=== PATIENT | female | born 1980 | race Caucasian/White ===

== ENCOUNTER 2024-11-30 02:09 | Inpatient (IN) | payer OTHER, SELFPAY ==
[2024-11-29 16:58] VITALS: BP 115/79
[2024-11-29 17:42] LABS: HCG, Serum Qualitative Screen Negative; Hematocrit 32.4 % (37.0-47.0); Hemoglobin 10.1 g/dL (12.0-16.0); Mean Corp Hgb Conc. 31.2 g/dL (33.0-37.0); Mean Corpuscular Volume 74.5 fL (81.0-99.0); Nucleated Red Blood Cells % 0 %; Platelet Count 354 10^3/uL (130-400); Red Cell Dist. Width 13.2 % (11.5-14.5)
[2024-11-29 17:48] LABS: ALT (SGPT) 11 U/L (0-35); AST (SGOT) 14 U/L (14-36); Albumin 3.6 g/dl (3.5-5.0); Alkaline Phosphatase 81 U/L (38-126); Blood Urea Nitrogen 6 mg/dl (7-17); Calcium 8.8 mg/dl (8.4-10.2); Carbon Dioxide 29 mmol/L (22-30); Chloride 98 mmol/L (98-107); Glucose 102 mg/dl (70-99); Lipase 39 U/L (23-300); Potassium 3.1 mmol/L (3.5-5.1); Sodium 134 mmol/L (135-145); Total Protein 6.5 g/dl (6.3-8.2); eGFR > 60.00
[2024-11-29 22:09] VITALS: BP 123/84
[2024-11-29 23:53] VITALS: BMI 28.2
--- NOTE | 2024-11-30 00:11 | HPS.HSE ---
Family Physician
-
Family Physician: Benjamin Garcia MD
Chief Complaint
-
Abdominal pain
History of Present Illness
This is a 41-year-old female with past medical history significant for ulcerative colitis and depression who presents to the emergency department with ongoing abdominal pain that started about 5 days ago.
Patient reports that she had a 'stomach flu' starting about Thursday last week. Initially she just had crampy abdominal pain and intolerance to p.o. However at around Thursday she started having fevers chills and severe persistent abdominal pain and
that she reports sharp and squeezing sensation. She was unable to tolerate p.o. due to worsening pain associated with p.o. intake. She denied having any diarrhea at that time. She was seen at [facility] as she was traveling at that time.
She had a CT scan that showed moderately active ulcerative colitis with rectal wall thickening and a right-sided perirectal/perianal 1.2 cm fluid collection consistent with an abscess. She was placed on antibiotics. Patient reported that despite
the antibiotics she still continued to have abdominal pain and now that it is more diffuse. She has some tenesmus. She still unable to tolerate p.o. and stated that she still had chills and rigors despite antibiotics. She reported that she did
have mucus containing stools and or unusual vaginal discharge today.
She last had a colonoscopy a year ago which showed signs of ulcerative colitis but no active disease. She has been maintained on mesalamine since then. She has never been on any other disease modifying medications.
In the emergency department she was afebrile with a temp of 99.8, blood pressure was 125/80 with a pulse of 86 and she satting 100% on room air.
White count was 15, hemoglobin 10. Count 354. She has a potassium of 2.1 otherwise electrolytes BUN/creatinine were normal. Lactic acid was normal. CT of the abdomen pelvis is pending.
Medical History
Past Medical History
Past Medical History: Reports Other (Ulcerative colitis)
Past Surgical History: Reports (X 2) and Tonsilectomy
Social History
Tobacco: Smoker
Alcohol: Occasional
Drug: None
Personal:
Living: With Family
Family History
Family History: Not pertinent
Allergies / Home Medications
Allergies reflects when Allergies were last updated in [employer].
Home Medications with original date entered in [employer]
Allergy/Medication List:
Allergies
Allergy/AdvReac Type Severity Reaction Status Date / Time
No Known Allergies Allergy Unverified 11/29/24 23:53
Home Medications
mesalamine 1.2 gram tablet,delayed release 2.4 g PO DAILY 11/30/24
paroxetine HCl 10 mg tablet 10 mg PO DAILY 11/30/24
Review of Systems
-
Constitutional: Reports No Symptoms
EENT: Reports No Symptoms
Respiratory: Reports No Symptoms
Cardiac: Reports No Symptoms
Abdomen/GI: Reports Abdominal Pain and Nausea
: Reports No Symptoms
Musculoskeletal: Reports No Symptoms
Skin: Reports No Symptoms
Neurological: Reports No Symptoms
Endocrine: Reports No Symptoms
Hematologic/Lymphatic: Reports No Symptoms
Psych: Reports No Symptoms
Physical Exam
Vital Signs
Vital Signs
Temp Pulse Resp BP Pulse Ox
99.8 F 86 16 123/84 100
11/29/24 16:58 11/29/24 16:58 11/29/24 22:11 11/29/24 22:09 11/29/24 22:10
Physical Exam
General: Well Developed, Well Nourished and No Apparent Distress
HEENT: NormoCephalic, Moist mucous membranes and Atraumatic
Respiratory: Clear
Cardiac: S1/S2 and Regular Rhythm; No Murmur or Rub
GI: Soft, Non Distended, Normal Bowel Sounds and Tender; No Organomegaly
Rectal: Deferred by Provider
Musculoskeletal: No Clubbing, No Cyanosis and No Edema
Skin: No Rash
Neuro: AO x 3 and Nonfocal/grossly intact
Psych: Calm
Laboratory Results
-
11/29/24 17:20
11/29/24 17:20
Laboratory Results
Lactic Acid 0.7 mmol/L (0.7-2.0) 11/29/24 17:20
Total Bilirubin 0.3 mg/dl (0.2-1.3) 11/29/24 17:20
AST 14 U/L (14-36) 11/29/24 17:20
ALT 11 U/L (0-35) 11/29/24 17:20
Alkaline Phosphatase 81 U/L (38-126) 11/29/24 17:20
Lipase 39 U/L (23-300) 11/29/24 17:20
Data Reviewed
-
Lab Data: Labs Reviewed by me
Old Records: Reviewed
Impression/Plan
-
IMPRESSION:
41-year-old female with history of ulcerative colitis presented to the emergency department with several days of intractable abdominal pain with nausea and 1 episode of nonbilious and nonbloody emesis. She was diagnosed with moderate active
ulcerative colitis few days ago at [facility] with associated right-sided perirectal abscess and was started on oral antibiotics. Despite the oral antibiotics patient is going to have severe abdominal pain feverish and chills. Here she
has leukocytosis to 15.
PLAN:
Perirectal Abscess - Likely secondary to active ulcerative colitis. Failure of oral abx. No fistula on reported CT - scan from [facility].
- admit to med/surg
- CT a/p
- NPO for now
- IV zosyn,
- Surgery consultation, OR in AM.
UC - follows at [facility], on mesalamine, no known recent flare but appears to be having a moderate flare based on CT scan from [facility]. Mucus containing stools today.
- checking esr, fecal calprotectin
- IV abx as above
- holding steroids for now
- continue mesalamine
- GI consult
DVT PPX - Lovenox Sq
Code status - Full code
[2024-11-30] MEDS: ZOSYN 100 IV (00:31)
[2024-11-30] MEDS: DILAUDID 1 MG IV (00:31)
[2024-11-30] MEDS: ZOFRAN 4 MG IV (00:32)
[2024-11-30] MEDS: KCL 40 MEQ PO (01:23)
[2024-11-30 01:28] VITALS: BP 123/75
--- NOTE | 2024-11-30 01:48 | ED.GENMED ---
History of Present Illness
General
Chief Complaint: Abdominal Symptoms
Source: patient and spouse
Time Seen by Provider: 11/29/24 22:50
Nursing documentation reviewed up to this point in time: agreed with
History of Present Illness
History of Present Illness:
Note:
CHIEF COMPLAINT(S)
Anal abscess and severe abdominal pain.
HISTORY OF PRESENT ILLNESS
The patient is a 43-year-old female with a history of ulcerative colitis, presenting with significant abdominal pain and a diagnosed anal abscess. The abscess was identified while the patient was on vacation at [facility], where she was given oral
antibiotics and oxycodone for pain management. The pain began at the beginning of last week, with notable worsening by Thursday. She describes the pain as 'my whole belly feels like its going up in flames' and reports being unable to eat due to this
discomfort.
The patient perceives a possible flare-up of ulcerative colitis, mentioning 'Im in flames usually on my left side' and thinks that the entire colon might be involved as she hasnt experienced such pain before. Currently, shes avoiding steroids due to
the anal abscess. The patient also experienced a fever, reaching up to 102�F last night, but describes it mostly as 'low grade.'
PAST MEDICAL AND SURGICAL HISTORY
Diagnosed with ulcerative colitis.
SOCIAL DETERMINANTS AFFECTING HEALTH
The patient admits to consuming alcohol in excess during the weekend and possible recreational drug use.
REVIEW OF SYSTEMS
- Gastrointestinal: Severe abdominal pain, described as burning.
- Systemic: Fever reached up to 102�F.
PHYSICAL EXAM
General: Alert, no acute distress.
Skin: Warm, dry.
Head: Normocephalic, atraumatic.
Neck: Supple, trachea midline.
Eyes, Ears, Nose, Mouth, and Throat: Oral mucosa moist.
Cardiovascular: Normal peripheral perfusion, no edema.
Respiratory: Respirations are non-labored.
Gastrointestinal: Abdomen nondistended.
Back: Normal range of motion, normal alignment.
Musculoskeletal: Normal range of motion, normal strength.
Neurological: Alert and oriented to person, place, time, and situation. No focal neurological deficit observed.
Psychiatric: Cooperative, appropriate mood & affect.
PROBLEM LIST
Acute:
- Anal abscess
- Severe abdominal pain attributed to possible ulcerative colitis flare
Chronic:
- Ulcerative colitis
PLAN
- Admission to hospital for further evaluation and management.
- Consider stronger analgesics for pain management.
- Consultation with colorectal and gastroenterology specialists.
- Discussion regarding possible need for imaging such as a new CT scan or MRI, contingent on specialist recommendations.
DIFFERENTIAL DIAGNOSIS
The Differential Diagnosis includes, in no particular order and is not limited to:
1. Ulcerative colitis flare.
2. Complicated anal abscess.
3. Gastroenteritis.
4. Diverticulitis.
5. Crohns disease.
6. Colonic volvulus.
7. Appendicitis.
8. Gastrointestinal perforation.
9. Pelvic inflammatory disease.
10. Ischemic colitis.
Disposition:
SUMMARY OF ENCOUNTER
The patient, a 43-year-old female, presented with an anal abscess and was seen in the emergency department for admission to the hospital. Due to the seriousness of the abscess, which required surgical intervention, colorectal surgery was informed.
Dr. Finn was set to take the patient to the operating room the same day. In the emergency department, the patient was kept NPO (nothing by mouth) and was resting comfortably with pain management.
DISPOSITION
Admit
MANAGEMENT OF THE PATIENTS CARE WAS DISCUSSED WITH
Colorectal surgery, Dr. Finn
PLAN
The patient will be admitted to the hospitalist service, and colorectal surgery will proceed with surgical intervention for the anal abscess.
DIAGNOSIS
Anal abscess (ICD-10: K61.2)
Review of Systems
Review of Systems
Allergies reviewed?: Yes
All Other Systems: ROS reviewed and negative except as documented in HPI and ROS
Constitutional: Reports fever, fatigue and chills
EENT: Reports no symptoms
Respiratory: Reports no symptoms
Cardiac: Reports no symptoms
ABD/GI: Reports abdominal pain
: Reports no symptoms
Musculoskeletal: Reports no symptoms
Skin: Reports no symptoms
Neurological: Reports no symptoms
Endocrine: Reports no symptoms
Hematologic/Lymphatic: Reports no symptoms
Psychiatric: Reports no symptoms
Phy Exam
Physical Exam
Physical Exam:
.
Sepsis
Sepsis Screening
Sepsis Assessment: Sepsis
Sepsis Screen
Sepsis Screen: Sepsis
Date: 11/30/24
Time: 01:53
Course
Orders/Labs/Results
Orders:
Orders
11/29/24 17:08
Test Result ONCE
11/29/24 17:20
Complete Blood Count/With Diff Urgent
Comprehensive Metabolic Panel Urgent
HCG, Serum Qualitative Screen Urgent
Lactic Acid Urgent
Lipase Urgent
11/29/24 23:19
HYDROmorphone [Dilaudid] 1 mg IV NOW STA
11/29/24 23:23
Iohexol [Omnipaque] See Protocol PO NOW STA
Piperacillin/Tazo 4.5 Gram [Zosyn] 4.5 gram in 100 ml IV NOW
11/29/24 23:25
Ondansetron Injectable [Zofran] 4 mg IV NOW STA
11/30/24
CT Abd/pelvis W Iv Cont Urgent
Reason For Exam: known abcess
11/30/24 00:23
Admit/Transfer Patient As Directed
Co-Sign Provider:
Level of Care: Inpatient admission
Assign to:: Medical/Surgical
Physician / Group: Myla
Diagnosis: Perirectal abscess
Reason for Hospitalization: perirectal abscess
Expected length of stay greater than two midnights?: Yes
ELOS- Estimated Length of Stay in days: 2
I certify the patient meets the requirements for IP care: Yes
PRN Pain Medication Management As Directed
May give lesser potent ordered pain med per pt: Yes
preference::
Protocol:: Medication orders for pain may be administered in a
manner that supports deferring to patient preference
when the pt is:
- Requesting an ordered lesser potent pain medication.
Least to most potent pain medications are defined
as: acetaminophen < NSAID < tramadol < opioids
(morphine, oxycodone, hydromorphone).
- Requesting a lesser dose of the same medication IF
ORDERED.
- Requesting a less intrusive route of administration
if both routes are prescribed by the provider (PO <
IV).
11/30/24 00:25
Code Status As Directed
Resuscitation Status: Full Code
11/30/24 00:29
Potassium Chloride [KCl] 40 meq PO NOW STA
Abnormal Lab Results
11/29/24
17:20
WBC 15.0 H 10^3/uL
(4.8-10.8)
Hgb 10.1 L g/dL
(12.0-16.0)
Hct 32.4 L %
(37.0-47.0)
MCV 74.5 L fL
(81.0-99.0)
MCH 23.2 L pg
(27.0-31.0)
MCHC 31.2 L g/dL
(33.0-37.0)
Abs Immat Gran (auto) 0.1 H 10^3/uL
(0-0.05)
Absolute Neuts (auto) 11.0 H 10^3/uL
(1.4-6.5)
Absolute Monos (auto) 1.1 H 10^3/uL
(0.1-0.6)
Immature Gran % 0.9 H %
(0-0.5)
Lymphocytes % 16.6 L %
(20.5-51.1)
Sodium 134 L mmol/L
(135-145)
Potassium 3.1 L mmol/L
(3.5-5.1)
BUN 6 L mg/dl
(7-17)
Glucose 102 H mg/dl
(70-99)
11/29/24 17:20
11/29/24 17:20
Vital Signs
Initial and Last Documented VS:
Initial Vital Signs
Temp Pulse Resp BP Pulse Ox
99.8 F 86 18 115/79 99
11/29/24 16:58 11/29/24 16:58 11/29/24 16:58 11/29/24 16:58 11/29/24 16:58
Last Documented Vital Signs
Temp Pulse Resp BP Pulse Ox
99.8 F 86 16 123/75 99
11/29/24 16:58 11/29/24 16:58 11/29/24 22:11 11/30/24 01:28 11/30/24 01:28
*Pulse Oximetry
SaO2: 99
Oxygen Mode of Delivery: Room air
Patient hypoxic: no
*Critical Care Note
Total Time (30-74mins, 75-104mins- exclusive of procedures): Not Applicable
Update Note
Update Note:
NAME: ARTI SPARKS
DATE OF EXAM: 11/30/2024
Patient No: [id number]
Physician: JOHNNY
Date of : 1980
Past Medical History (entered by Technologist):
Reason For Exam (entered by Technologist):
Other Notes (entered by Technologist): had ct at another hospital on thursday, known rectal abscess
Additional Information (per [facility]):
CT ABDOMEN AND PELVIS WITH IV CONTRAST
IMPRESSION
Moderate thickening and adjacent stranding of the transverse colon to the rectum albeit to a slightly lesser extent in the sigmoid colon. No pneumatosis or free air. This may represent infectious/bacterial colitis, Clostridium difficile colitis if
the patient has recently received antibiotics/exposure, inflammatory bowel disease y. Ischemic bowel is felt less likely due to multiple vascular territories. There is a perirectal abscess on the right posteriorly measuring 6 x 18 x 17 mm,
abutting the levator ani. No extension into the ischial rectal fossa. No other abscess or free air.
Incidental
IUD in the uterus appropriately located. Probable hemangioma measuring 10 mm segment 6 of the liver with subtle discontinuous peripheral puddling enhancement.
Case faxed/finalized at 1:18 AM eastern time after centimeters at. If there are any questions please contact me at [phone].
Cesar Rico M.D.
This report has been electronically signed and verified by the Radiologist whose name is printed above.
ED Attending Note
-
Portions of this chart may have been created with voice recognition software.� Occasional wrong word or��sound alike� substitutions may have occurred due to the inherent limitations of voice recognition software.
Discharge Plan
Departure
Patient Disposition: Admit
Date of Disposition: 11/30/24
Time of Disposition: 01:52
Admit to: Telemetry
Presentation/result/management discussed w/ accepting MD/DO: Hospitalist
Discharge Problem:
Abscess of anal and rectal regions
Prescriptions:
No Action
paroxetine HCl 10 mg tablet
10 mg PO DAILY
mesalamine 1.2 gram tablet,delayed release (DR/EC)
2.4 g PO DAILY
Referrals:
Benjamin Garcia MD [Family Provider, Family Practice]
Interventions
Interventions:
*Risk Screen - Suicide Last Done: 11/29/24 22:36
*General Assessment Last Done: 11/29/24 22:36
*Neglect/Abuse Screening Last Done: 11/29/24 22:36
*ED- Fall Risk Assessment Last Done: 11/29/24 22:36
*ED COVID-19 Vaccine History Last Done: 11/29/24 22:36
LV-Mzosnt-Ukrkuuonok Assessment Last Done: 11/29/24 22:36
Discharge Date and Time
Print Language: ZIMBABWEAN
[2024-11-30 02:45] VITALS: BMI 24.8
[2024-11-30] MEDS: D5LR 1000 IV (03:06)
[2024-11-30 03:14] VITALS: BP 119/79
[2024-11-30] MEDS: DILAUDID 0.5 MG IV ×5 (03:20→22:41)
[2024-11-30] MEDS: KCL 260 MEQ IV (03:28)
--- NOTE | 2024-11-30 03:56 | PTCARENOTE ---
Patient stated that ' had 4 loose stool' in the past 24hr. Patient had another episode and collected stool sample. Notified YOVANY Higgins. sent stool specimen as ordered. Nursing o and m supervisor made aware.
[2024-11-30] MEDS: ZOSYN 50 IV ×4 (05:27→23:05)
--- NOTE | 2024-11-30 07:49 | CON.GI ---
Addendum entered and electronically signed by Doreen Hoffman MD 11/30/24 14:07:
I personally performed a history and physical exam of the patient and discussed management with the resident. I reviewed the resident's note and agree with the documented findings and plan of care HPI/CC.
Ms. Gaines is a 43-year-old female past medical history of ulcerative colitis initially diagnosed 3 years ago by [facility] presenting with bloody diarrhea and weight loss followed with Dr. Hankins with left-sided colitis on mesalamine, never been
hospitalized, no steroids except for steroid suppositories. She would intermittently have small flares but overall well-controlled. She had a colonoscopy with Dr. Hankins June 2024 which according to her showed inflammation however, he did not
plan on changing her medications. Then on November 21 she had cramping abdominal pain with bloody diarrhea up to 10 episodes a day with nocturnal bowel movements, tenesmus, without urgency or incontinence. This was after she had [place]ian food and rum
and her also had some GI symptoms that she thought was secondary to her dietary intake. She slowly started to feel better but then on November 24 she had a fever to 101. Her diarrhea at improved with only having 4-5 bowel movements a day
without further bleeding, having some mucus. She went to the [facility] on November 26 she felt worse with fevers as high as 103 and went to [facility] had a CT scan which showed colitis and perirectal abscess and was given Augmentin and oxycodone. She
called her GI doctor who recommended that she go to the emergency room. Today, she states she has 4-5 bowel movements a day without blood, some mucus, no fevers overnight, ongoing abdominal pain. CT abdomen pelvis showed a 1.8 centimeter
perirectal abscess with colitis from the rectum, sigmoid, descending and transverse colon. Labs significant for white blood cell count 15 yesterday, repeat 14.7, hemoglobin today 9.8 with iron indices consistent with iron deficiency anemia, ESR 56,
CRP 170. CDI neg.
I am concerned that she has Crohn's disease given the perirectal abscess.
I discussed at length with colorectal surgery who plans on doing I&D of the perirectal abscess. I would not recommend starting steroids until after the abscess is drained to ensure source control.
Recommendations:
- I+D by surgery, NPO for now can be on clear liquid after
- Flex sig tomorrow after I+D, no need for full bowel prep can do a one time tap water enema in am
- continue abx
- plan for IV steroids after I+D
- tb/hep b studies ordered
- calpro pending
- stop mesalamine - has failed 5 ASA at this point (and concern for Crohn's)
- records pending from prior GI
- d/w pt importance of tobacco cessation
- continue lovenox high risk of clot with inflammation
Original Note:
Consultation
-
Date/Time Consultation Requested: 11/30/2024
Date/Time Consultation Performed: 11/30/2024
Requesting Provider: Umu Lanza
Performing Provider: Erika Hoffman
Reason for Consultation: History of Ulcerative Colitis with Perirectal Abscess
Medical History
Chief Complaint / HPI
Chief Complaint: Abdominal Pain, Perirectal Abscess
History of Present Illness:
Angella is a 43 year old female with a past medical history of presumed Ulcerative Colitis who presented with continuing abdominal pain, bloody/mucoid diarrhea for over one week.
Her abdominal pain started on 11/21 after a night of drinking and eating spicy [place] foot at a [employer]. She first thought it might've been a viral gastroenteritis because of the food/ experiencing abd pain symptoms. At that time she was
experiencing mild-mod abdominal pain, intermittent painful mucoid/bloody stools (~10/day) that did not resolve after defecation. No other people from the libertarian were sick with her symptoms.
The symptoms started to resolve over the course of several days and by 11/24 she was feeling better, but not back to baseline as she was still having 3-4 bilious, frothy/bloody bms per day. She was taking Tylenol/Motrin back to back for 3 days for
the pain. On 11/26, [place] [facility] [place] [facility], she went to [facility] for continuing abdominal pain and inability to tolerate PO. CT scan was done at that time which confirmed Colitis and a fluid collection suggestive of perirectal abscess.
They informed her that they had no surgeons available over the weekend and that she should follow up with primary. She was discharged on Augmentin and Oxycodone. She could not get ahold of her GI over the holiday weekend. She called her GI
specialist Dr. Hankins yesterday and he told her to come to the ED. Her last colonoscopy was done in June [address] Hankins and he reports seeing inflammation. At her baseline, she takes mesalamine and will have intermittent flare ups of abd
pain with occasional bloody/mucoid stools, but never to this extent.
GI was consulted for UC Flare with abscess.
Currently, she is still in pain, but is resting comfortably in bed following pain medication. She is mostly complaining of Left sided and epigastric pain. She had 2-3 bowel movements overnight which were nonbloody but painful. She was able to eat
bread and a smoothie yesterday without n/v. She is currently NPO.
Past Medical History
Past Medical History: Psychiatric and Other (Ulcerative Colitis. )
Past Surgical History: (x2 C sections) and Tonsilectomy
Social History
Tobacco: Smoker (1.5 packs per week. Smoking >30 years with prior increased smoking. )
Alcohol: Other (Weekend 8-10 drinks per weekend)
Drug: Marijuana (occasional)
Personal:
Living: With Family
Employment: Employed
Family History
Family History: Other
Allergies / Home Medications
Allergy/AdvReac Type Severity Reaction Status Date / Time
No Known Allergies Allergy Unverified 11/29/24 23:53
�Medication �Instructions �Recorded
mesalamine 1.2 gram tablet,delayed 2.4 g PO DAILY 11/30/24
release
paroxetine HCl 10 mg tablet 10 mg PO DAILY 11/30/24
Review of Systems
-
History Source: Patient
All other systems: A 12 pt ROS was Negative except as stated above in HPI
Vital Signs
Temp Pulse Resp BP Pulse Ox
98.6 F 83 16 119/79 98
11/30/24 03:14 11/30/24 03:14 11/30/24 03:14 11/30/24 03:14 11/30/24 03:14
Physical Exam
Exam
General: Well Developed, Well Nourished, No Apparent Distress and Comfortable
HEENT: Normocephalic, Anicteric, Moist Mucous Membranes and Atraumatic
Respiratory: Clear and Non Labored Respirations; Negative Wheezes, Rales or Rhonchi
Cardiac: S1/S2 and Regular Rhythm; Negative Murmur or Rub
Breast: Deferred by me
GI: Soft, Non Distended and Tender (Left sided + epigastric)
Musculoskeletal: No Clubbing, No Cyanosis and No Edema
Skin: Warm and Dry
Neuro: AO x 3
Hematologic/Lymphatic: No Lymphadenopathy
Psych: Calm
Results
WBC 15.0 10^3/uL (4.8-10.8) H 11/29/24 17:20
Hgb 10.1 g/dL (12.0-16.0) L 11/29/24 17:20
Hct 32.4 % (37.0-47.0) L 11/29/24 17:20
MCV 74.5 fL (81.0-99.0) L 11/29/24 17:20
Plt Count 354 10^3/uL (130-400) 11/29/24 17:20
Absolute Neuts (auto) 11.0 10^3/uL (1.4-6.5) H 11/29/24 17:20
Sodium 134 mmol/L (135-145) L 11/29/24 17:20
Potassium 3.1 mmol/L (3.5-5.1) L 11/29/24 17:20
Chloride 98 mmol/L (98-107) 11/29/24 17:20
Carbon Dioxide 29 mmol/L (22-30) 11/29/24 17:20
BUN 6 mg/dl (7-17) L 11/29/24 17:20
Creatinine 0.6 mg/dL (0.6-1.0) 11/29/24 17:20
Calcium 8.8 mg/dl (8.4-10.2) 11/29/24 17:20
Total Bilirubin 0.3 mg/dl (0.2-1.3) 11/29/24 17:20
AST 14 U/L (14-36) 11/29/24 17:20
ALT 11 U/L (0-35) 11/29/24 17:20
Alkaline Phosphatase 81 U/L (38-126) 11/29/24 17:20
Lipase 39 U/L (23-300) 11/29/24 17:20
Diagnostic Image Results:
Prior GI Procedures:
EGD:
Colonoscopy:
Assessment / Plan
-
Angella is a 43 year old female with a past medical history of presumed Ulcerative Colitis (on mesalamine) who presented with persistent abdominal pain, bloody/mucoid diarrhea for over one week, recently put on po antibiotics for CT scan at [facility]
showing perirectal fluid collection.
Prior to diagnosis, she had sx of abd pain with periodic bloody/mucoid stools every 1-2 months. She reports occasional eye pain and unintentional weight loss, especially leading up to 2021 which was when she was formally diagnosed. Bidirectional
scope in 2021 revealed findings concerning for IBD and she was referred to Dr. Hankins and started on mesalamine. She reports occasional nocturnal bowel movements during flares. She has never experienced joint pain, rashes, throat pain or ulcers.
She reports episodes of having to de la garza to the bathroom with some leaking, but no true incontinence. She has not had any prior hospitalizations due to UC in the past. She has needed steroid suppository in the past, but never systemic steroids. She
has never been on any biologic agents. She has not had any abdominal surgeries in the past. There is a maternal history of autoimmune diseases MS and Sarcoidosis. Most recent colonoscopy was in June of 2024 which confirmed persistent inflammation,
primarily on the 'left side'
#Intractable Abdominal Pain
#Bloody Diarrhea
#Indeterminate IBD
History of presumed UC, previously poorly controlled on mesalamine, currently in flare. Uncertain whether flare was triggered by viral Gastroenteritis vs. Diet (alcohol, spicy food, etc.) vs. disease progression with poor control on mesalamine,
however now presenting with abscess that failed outpatient tx with oral antibiotics.
She will need a Flex Sig. Ideally, this would happen after I&D of the perirectal abscess, possibly tomorrow if she can be drained today. Once the abscess is drained, would recommend starting IV steroids for IBD flare.
Will observe stool studies to rule out infectious etiology
C/w IV Abx
CRP 170, c/t trend
C/t trend CBC, cmp
Fecal calprotectin pending
Will order Hepatitis panel and Quantiferon TB as she will likely need to be transitioned to biologic agent for better IBD control
Pain well controlled on current pain regimen.
No significant nausea at this time. If needed, can give IV antiemetics.
Continue with Lovenox SC for dvt ppx
Will coordinate with Colorectal to decide best timing for her to undergo flex sig.
-
-
Thank you for consultation and allowing me to participate in the patient's care. Please call the container filler GI physician during the after hours with any questions or concerns.
[2024-11-30] MEDS: ROXICODONE 5 MG PO ×2 (07:56→16:39)
[2024-11-30] MEDS: PAXIL 10 MG PO (07:57)
[2024-11-30 08:03] LABS: Hematocrit 31.4 % (37.0-47.0); Hemoglobin 9.8 g/dL (12.0-16.0); Mean Corp Hgb Conc. 31.2 g/dL (33.0-37.0); Mean Corpuscular Volume 74.4 fL (81.0-99.0); Platelet Count 318 10^3/uL (130-400); Red Cell Dist. Width 13.2 % (11.5-14.5)
[2024-11-30 08:25] VITALS: BP 111/68
[2024-11-30 09:29] LABS: Blood Urea Nitrogen < 2 mg/dl (7-17); Calcium 8.4 mg/dl (8.4-10.2); Carbon Dioxide 29 mmol/L (22-30); Chloride 102 mmol/L (98-107); Estimated Creatinine Clearance 92 ml/min; Glucose 82 mg/dl (70-99); Magnesium 1.9 mg/dl (1.6-2.3); Potassium 3.7 mmol/L (3.5-5.1); Sodium 138 mmol/L (135-145); eGFR > 60.00
[2024-11-30 09:50] LABS: C-Reactive Protein 170.50 mg/L (0.0-10.00)
[2024-11-30 11:32] LABS: Iron 21 ug/dl (37-170)
[2024-11-30 11:42] LABS: Total Iron Binding Capacity 258 ug/dl (265-497)
[2024-11-30 11:58] LABS: Ferritin 52.4 ng/ml (6.24-137)
--- NOTE | 2024-11-30 13:32 | CON.CRS ---
Consultation
-
Date/Time Consultation Requested: 11/30/2024, 02:45
Date/Time Consultation Performed: 11/30/2024, 08:45
Requesting Provider: Umu Lanza MD
Performing Provider: Henrique Melo MD
Reason for Consultation: perirectal abscess
Medical History
-
Chief Complaint: abominal pain
History of Present Illness:
43-year-old female, with a past medical history of ulcerative colitis on mesalamine, presents to [facility] early this morning after about a week and a half of abdominal pain. She states this started about a week and a half ago where she
developed abdominal pain to the point where she could feel liquid going through her colon after drinking water. She stated the sensation felt like it was 'on fire'. The pain started to worsen and she was unable to eat. 5 days ago she was in
excruciating pain and had a fever of 103.0 and started vomiting bile. She also developed bile-like diarrhea that was full of blood. She went to the ER at [facility] and had a CT of the abdomen. This show moderately active ulcerative
colitis with rectal wall thickening and a right sided perirectal/perianal 1.2 cm collection consistent with an abscess. She was placed on antibiotics, pain medication, and antinausea medication. She then called her contract specialist Dr. Hankins.
She was told to immediately go to the emergency room after she did not improve. She states that she was diagnosed with ulcerative colitis about 3 years ago and initially was not on anything until she recently was started on mesalamine in June
2024. This is after a colonoscopy performed by Dr. Germaine luna which showed active disease in her colon.
On admission to the ER her WBC was 15.0. Her temperature was 99.8. CT of the abdomen and pelvis showed infectious or inflammatory colitis in the rectum, sigmoid colon, descending, and transverse colon. No numerous doses and terminal-itis or extra
luminal air. There is also a small rectal abscess to the right of the rectum measuring 1.8 x 1.7 x 0.6 cm. Given these findings, we have been consulted for surgical recommendation.
Past Medical History
Past Medical History: Other (Ulcerative colitis)
Past Surgical History: (X 2) and Tonsilectomy
Social History
Tobacco: Smoker (1-1/2 packs/week)
Alcohol: Occasional
Drug: None
Personal:
Family History
Family History: Reviewed & Not Pertinent
Allergies / Home Medications
Allergy/AdvReac Type Severity Reaction Status Date / Time
No Known Allergies Allergy Unverified 11/29/24 23:53
�Medication �Instructions �Recorded �Confirmed �Type
mesalamine 1.2 gram tablet,delayed 2.4 g PO DAILY 11/30/24 11/30/24 History
release
paroxetine HCl 10 mg tablet 10 mg PO DAILY 11/30/24 11/30/24 History
Review of Systems
-
History Source: Patient
Constitutional: Fever
Abdomen/GI: Abdominal Pain, Vomiting, Diarrhea and Bloody Stools
A 10 point review of systems was completed, and was negative except as per HPI.
Physical Exam
Vital Signs
Temp 99 F 11/30/24 08:25
Pulse 88 11/30/24 08:25
Resp Rate 18 11/30/24 08:25
Blood pressure 111/68 11/30/24 08:25
SaO2 97 11/30/24 10:06
11/29/24 11/30/24 12/01/24
06:59 06:59 06:59
Actual Weight 59.562 kg
Body Mass Index (BMI) 24.8
Lab Results / Allergies
11/30/24 06:16
11/30/24 06:16
WBC 14.7 10^3/uL (4.8-10.8) H 11/30/24 06:16
Hgb 9.8 g/dL (12.0-16.0) L 11/30/24 06:16
Hct 31.4 % (37.0-47.0) L 11/30/24 06:16
Plt Count 318 10^3/uL (130-400) 11/30/24 06:16
Abs Immat Gran (auto) 0.1 10^3/uL (0-0.05) H 11/29/24 17:20
Neutrophils % 73.4 % (42.2-75.2) 11/29/24 17:20
Allergy/AdvReac Type Severity Reaction Status Date / Time
No Known Allergies Allergy Unverified 11/29/24 23:53
Physical Exam
General: Well Developed, Well Nourished and No Apparent Distress
GI: Soft and Tender (Throughout, moderate, prominent in the suprapubic and left side)
Rectal: Other (Tenderness in the left anterior aspect during LISE, no blood on fingertip. No obvious abscess noted on external exam.)
Skin: Warm and Dry
Neuro: AO x 3
Psych: Calm
Assessment / Plan
-
Assessment: 43-year-old female with a 3-year history of ulcerative colitis on mesalamine and managed by Dr. Drew presents to [facility] with abdominal pain, fevers, and loose stools with blood and bile and found to have a perirectal
abscess on CT as well as active colitis
Plan:
- N.p.o. for incision and drainage in the operating room today
- Discussed with gastroenterology
- Continue IV antibiotics
- Ulcerative colitis management per GI
--- NOTE | 2024-11-30 14:34 | W.PN.UPDATE ---
Addendum entered and electronically signed by John Ibrahim MD 12/01/24 08:25:
Correction:
Renee-rectal abscess
Original Note:
Update Note
Progress Note Update
Non-billable note
1. Peritoneal abscess -initially diagnosed on CT abdomen pelvis in [facility] approximately 1 week back and patient was provided oral Augmentin course. Repeat CT abdomen pelvis showing nonresolution with patient symptoms persisting and have new
fever. Colorectal surgery evaluated and taking patient for I&D surgery today.
2. Ulcerative colitis -rule out flareup. Patient with possible infectious colitis versus UC flareup. Stool cultures has been collected. Patient mesalamine has been started by GI for nonimprovement of symptoms. Fecal calprotectin pending.
3. Tobacco use - cessation recommended.
[2024-11-30] MEDS: NSS 1000 IV (14:41)
--- NOTE | 2024-11-30 15:46 | CM ---
field manager reviewed patient's chart and met with patient and patient lives with spouse and 2 children in a 2 story home, patient is independent with adl's and ambulation, no dme, patient drives, home when stable, no needs.
PCP: Benjamin Garcia
Pharmacy: [facility] in [place]
[2024-11-30 16:06] VITALS: BP 109/78
[2024-11-30] MEDS: LOVENOX 40 MG SC (17:35)
[2024-11-30] MEDS: TYLENOL 650 MG PO (20:19)
[2024-11-30 23:16] VITALS: BP 114/72
[2024-12-01] VITALS (10 sets, daily range): BP systolic 101–124; BP diastolic 55–83
[2024-12-01] MEDS: TYLENOL 650 MG PO (02:19)
[2024-12-01] MEDS: NSS 1000 IV ×2 (02:26→19:07)
[2024-12-01] MEDS: ZOSYN 50 IV ×4 (05:11→23:10)
[2024-12-01] MEDS: PAXIL 10 MG PO (08:17)
[2024-12-01] MEDS: ROXICODONE 5 MG PO (08:19)
--- NOTE | 2024-12-01 08:27 | W.PN.HOSP.TC ---
Today's Communication/Plan
-
maintain on abx
for OR today
Assessment / Plan
Assessment / Plan
CT a/p
1. Findings consistent with infectious or inflammatory colitis involving the rectum, sigmoid, descending, and transverse colon. No pneumatosis intestinalis or extraluminal air.
2. Small perirectal abscess to the right of the rectum, measuring 1.8 x 1.7 x 0.6 cm.
3. Small right adrenal nodule measures 6 mm in diameter, too small for accurate imaging characterization.
1. Renee-rectal abscess
-initially diagnosed on CT abdomen pelvis in [facility] approximately 1 week back and patient was provided oral Augmentin course.
- Repeat CT abdomen pelvis showing nonresolution with patient symptoms persisting and have new fever.
- Colorectal surgery evaluated and taking patient for I&D surgery today.
- Maintain on empiric zosyn for now
- have some leukocytosis. remains afebrile.
2. Ulcerative colitis
-rule out flareup. Gi questioning if patient have CD and not UC.
-Cdiff neg. stool culture for bacterial pathogen neg . fecal calprotection check ordered.
-Taken off mesalamine
-GI will consider to start steroids
-Patient with possible infectious colitis versus UC flareup.
3. Tobacco use
- cessation recommended.
4. Dep/anxiety
- maintain on home dose paroxetine
Full code
Anticipated Discharge: > 48 hours
Subjective/Interval History
-
Date of Service: December 01, 2024
complaining of abd pain. no nausea/vomiting
diarrhea w/o blood in stool
Objective Data
-
Labs:
Laboratory Results
12/01/24
06:24
WBC Pending
Hgb Pending
Hct Pending
Plt Count Pending
Vital Signs:
Vital Signs
Temp Pulse Resp BP Pulse Ox
98.5 F 82 16 114/72 96
11/30/24 23:16 11/30/24 23:16 11/30/24 23:16 11/30/24 23:16 11/30/24 23:16
I&O
11/30/24 12/01/24 12/02/24
06:59 06:59 06:59
Intake Total 300 / 300 720 / 720
Balance 300 / 300 720 / 720
Review of Systems
-
Respiratory: Reports No Symptoms
Cardiac: Reports No Symptoms
Abdomen/GI: Reports Abdominal Pain; Denies Nausea or Vomiting
Physical Exam
-
General: No Apparent Distress and Comfortable
HEENT: Negative Oxygen
GI: Soft and Tender
Musculoskeletal: No Edema
Neuro: Awake, Alert, Oriented, No Motor Deficits and Nonfocal/Grossly Intact
Psych: Calm
[2024-12-01 08:52] LABS: Hematocrit 29.8 % (37.0-47.0); Hemoglobin 9.2 g/dL (12.0-16.0); Mean Corp Hgb Conc. 30.9 g/dL (33.0-37.0); Mean Corpuscular Volume 74.7 fL (81.0-99.0); Nucleated Red Blood Cells % 0 %; Platelet Count 314 10^3/uL (130-400); Red Cell Dist. Width 13.2 % (11.5-14.5)
[2024-12-01 09:59] LABS: C-Reactive Protein 180.60 mg/L (0.0-10.00)
--- NOTE | 2024-12-01 10:05 | W.PN.CRS1 ---
Today's Communication / Plan
-
OR today for I&D, start steroids after
Assessment/Plan
-
43-year-old female with PMH of depression, UC (first diagnosed 3 years ago, follows with Dr. Hankins at [facility]; last colonoscopy in June and reports that there was active disease and she was started on mesalamine; denies any flares
requiring steroid tapers) who presented after 1.5 weeks of abdominal pain and poor oral intake. Last Thursday, she spiked a fever and was having bloody diarrhea. She went to [facility] where she was scanned and diagnosed with a UC flare and a
perianal abscess. She was treated with antibiotics and was discharged. However, her symptoms have worsened. WBC 15.0, CT showing colitis around the transverse colon to the rectum without evidence of pneumatosis or perforation and a small
perirectal abscess, about 1.8 x 1.7 cm. Patient states that her main complaint is abdominal pain and not perianal pain.
WBC 10.9 from 14.7, CRP 180 from 170.5
�UC vs Crohn's flare
� Personally reviewed CT, rectum seems relatively spared compared to the inflammation seen in the sigmoid, descending and transverse colon; additionally, anal involvement is more consistent with Crohn's; I share the same concern as Dr. Hoffman that
this may be Crohn's instead of UC
�Appreciate GI; plan to start steroids after I&D today, flex sig tmrw
�Perirectal abscess
� Appears more internal on exam, possibly intersphincteric; would recommend exam under anesthesia with incision and drainage
� Continue IV antibiotics
� Discussed with Dr. Finn and Dr. Hoffman
� Appreciate hospitalist
Subjective Data
Subjective Data
Date of Service: December 01, 2024
No issues overnight. Pain persist, but seems somewhat better. Does admit to pain in the rectum during BMs, but otherwise the pain in the rectum is not bothersome. When she had clears yesterday, that did make her abdominal pain slightly worse.
Denies any N/V.
Objective Data
-
Vital Signs
Temp Pulse Resp BP Pulse Ox
98.4 F 87 16 124/83 98
12/01/24 07:00 12/01/24 07:00 12/01/24 07:00 12/01/24 07:00 12/01/24 07:00
Intake & Output
11/30/24 12/01/24 12/02/24
06:59 06:59 06:59
Intake Total 300 / 300 720 / 720
Balance 300 / 300 720 / 720
Intake:
Oral fluids 720 / 720
IV fluids (Total) 300 / 300
Other:
Number of approximated MODERATE 2 3
amounts of urine
Lab Results
12/01/24 06:24
11/30/24 06:16
Physical Exam
-
General: No Acute Distress and AOx3
HEENT: Grossly Normal
Abdomen: Soft, Non Distended, Tender (Moderately tender in the left hemiabdomen, somewhat improved from yesterday), Guarding (Subtle guarding in the left hemiabdomen) and No Rebound
Rectal: Other (Deferred, see exam from yesterday)
Skin: Warm and Dry
[2024-12-01] MEDS: DILAUDID 0.5 MG IV ×2 (11:39→14:47)
--- NOTE | 2024-12-01 14:22 | W.IMMPOSTOP ---
Surgical Immed Post Op Note
-
Primary Surgeon: Fam Finn
Assisting Surgeon: same
Pre-op Diagnosis: perianal abscess
Post-op Diagnosis: same
Procedure Performed: 1) anorectal exam under anesthesia 2) (attempt at) incision and drainage of perianal abscess
Anesthesia Type: MAC plus local
Specimen / Cultures: none
Estimated Blood Loss: 5 cc
Complications: no immediate
Operative Findings: subtle fullness at R posterior anorectal junction---no pus on aspiration nor on I and D of this site
No dressings.
Sending back to med surg.
Resume clears.
--- NOTE | 2024-12-01 15:34 | SUR.OPER ---
Arrived from OR AAOX3. Call mooney within reach.
--- NOTE | 2024-12-01 15:55 | W.PN.GI.CBS2 ---
Today's Communication / Plan
-
steroids, flex sig tomorrow
Assessment / Plan
-
Ms. Gaines is a 43-year-old female past medical history of ulcerative colitis initially diagnosed 3 years ago by [facility] presenting with bloody diarrhea and weight loss followed with Dr. Hankins with left-sided colitis on mesalamine, never been
hospitalized, no steroids except for steroid suppositories. She would intermittently have small flares but overall well-controlled. She had a colonoscopy with Dr. Hankins June 2024 which according to her showed inflammation however, he did not
plan on changing her medications. Then on November 21 she had cramping abdominal pain with bloody diarrhea up to 10 episodes a day with nocturnal bowel movements, tenesmus, without urgency or incontinence. This was after she had Indonesian food and rum
and her also had some GI symptoms that she thought was secondary to her dietary intake. She slowly started to feel better but then on November 24 she had a fever to 101. Her diarrhea at improved with only having 4-5 bowel movements a day
without further bleeding, having some mucus. She went to the [facility] on November 26 she felt worse with fevers as high as 103 and went to [facility] had a CT scan which showed colitis and perirectal abscess and was given Augmentin and oxycodone. She
called her GI doctor who recommended that she go to the emergency room. Today, she states she has 4-5 bowel movements a day without blood, some mucus, no fevers overnight, ongoing abdominal pain. CT abdomen pelvis showed a 1.8 centimeter
perirectal abscess with colitis from the rectum, sigmoid, descending and transverse colon. Labs significant for white blood cell count 15 yesterday, repeat 14.7, hemoglobin today 9.8 with iron indices consistent with iron deficiency anemia, ESR 56,
CRP 170. CDI neg.
I am concerned that she has Crohn's disease given the perirectal abscess.
I+D attempted today 12/01 unable to drain
Recommendations:
- Clears today NPO after midnight
- Flex sig tomorrow, no need for full bowel prep can do a one time tap water enema in am
- continue abx
- solumedrol started today
- tb/hep b studies ordered 11/30
- calpro pending
- stop mesalamine - has failed 5 ASA at this point (and concern for Crohn's)
- records pending from prior GI
- d/w pt importance of tobacco cessation
- continue lovenox high risk of clot with inflammation
- d/w CRS re: repeat imaging in 1 month, they think not necessary given how small it is unless perianal symptoms
D/w CRS at length
D/w pt and family at length diagnosis Crohn's, plan for eventual biologic. Will like to switch care to GI.
Subjective
Subjective
Date of Service: December 01, 2024
Went to OR today unfortunately unable to I+D
4 BM overnight and 4 today non bloody
No pain
Objective
Data Reviewed
Laboratory Data:
Laboratory Results
12/01/24 06:24
11/30/24 06:16
Laboratory Results
Magnesium 1.9 mg/dl (1.6-2.3) 11/30/24 06:16
Total Bilirubin 0.3 mg/dl (0.2-1.3) 11/29/24 17:20
AST 14 U/L (14-36) 11/29/24 17:20
ALT 11 U/L (0-35) 11/29/24 17:20
Alkaline Phosphatase 81 U/L (38-126) 11/29/24 17:20
Lipase 39 U/L (23-300) 11/29/24 17:20
Vital Signs and I&O:
Vital Signs
Temp Pulse Resp BP Pulse Ox
98.6 F 107 18 112/67 99
12/01/24 15:30 12/01/24 15:30 12/01/24 15:30 12/01/24 15:30 12/01/24 15:30
I&O
11/30/24 12/01/24 12/02/24
06:59 06:59 06:59
Intake Total 300 / 300 720 / 720 400 / 400
Balance 300 / 300 720 / 720 400 / 400
Physical Exam
Physical Exam
GI: Non Distended and Non Tender
--- NOTE | 2024-12-01 17:13 | CM ---
Pt to OR today for a perianal abscess .
Pt for endoscopy tomorrow.'
Family to transport home.
Watch for VN needs.
PLAn Home with Possible VN if requested
[2024-12-01] MEDS: SOLU-MEDROL PF 20 MG IV ×2 (17:15→23:09)
[2024-12-01] MEDS: LOVENOX 40 MG SC (17:19)
[2024-12-01 19:00] LABS: Hepatitis B Surface Antigen Negative (Negative)
[2024-12-02] VITALS (8 sets, daily range): BP systolic 103–140; BP diastolic 65–88
[2024-12-02] MEDS: ROXICODONE 5 MG PO ×2 (01:41→17:24)
[2024-12-02] MEDS: ZOSYN 50 IV ×4 (05:09→23:48)
[2024-12-02] MEDS: NSS 1000 IV (05:13)
[2024-12-02] MEDS: DILAUDID 0.5 MG IV ×3 (06:44→20:52)
[2024-12-02] MEDS: PAXIL 10 MG PO (08:07)
[2024-12-02] MEDS: SOLU-MEDROL PF 20 MG IV ×3 (08:11→23:48)
--- NOTE | 2024-12-02 08:48 | W.PN.CRS1 ---
Today's Communication / Plan
-
Sitz baths.
Assessment/Plan
-
POD 1.
1. start sitz baths BID for a week.
2. medical management per GI/hospitalist.
3. will follow from afar. She should follow up with me in the office a few weeks after discharge.
Subjective Data
Procedure
anal EUA with attempted I and D perianal abscess on 12/02/24
Subjective Data
Date of Service: December 02, 2024
Some anal discomfort.
Less abdominal discomfort.
Objective Data
-
Vital Signs
Temp Pulse Resp BP Pulse Ox
97.9 F 79 18 108/65 99
12/02/24 03:29 12/02/24 03:29 12/02/24 03:29 12/02/24 03:29 12/02/24 03:29
Intake & Output
12/01/24 12/02/24 12/03/24
06:59 06:59 06:59
Intake Total 720 / 720 1520 / 1520
Balance 720 / 720 1520 / 1520
Intake:
Oral fluids 720 / 720 250 / 250
IV fluids (Total) 1170 / 1170
normosol 400 / 400
IV piggybacks 100 / 100
Other:
Number of approximated MODERATE 3 1
amounts of urine
Physical Exam
-
General: No Acute Distress
Chest: Clear
Cardiovascular: Regular Rate & Rhythm
Abdomen: Soft, Non Distended and Tender (minimal)
Rectal: Other (normal externally)
[2024-12-02 09:18] LABS: Blood Urea Nitrogen 3 mg/dl (7-17); Calcium 8.1 mg/dl (8.4-10.2); Carbon Dioxide 25 mmol/L (22-30); Chloride 104 mmol/L (98-107); Estimated Creatinine Clearance 92 ml/min; Glucose 117 mg/dl (70-99); Potassium 3.8 mmol/L (3.5-5.1); Sodium 138 mmol/L (135-145); eGFR > 60.00
[2024-12-02 09:22] LABS: Hematocrit 29.9 % (37.0-47.0); Hemoglobin 9.5 g/dL (12.0-16.0); Mean Corp Hgb Conc. 31.8 g/dL (33.0-37.0); Mean Corpuscular Volume 73.8 fL (81.0-99.0); Nucleated Red Blood Cells % 0 %; Platelet Count 413 10^3/uL (130-400); Red Cell Dist. Width 13.0 % (11.5-14.5)
[2024-12-02 09:41] LABS: C-Reactive Protein 166.10 mg/L (0.0-10.00)
--- NOTE | 2024-12-02 12:26 | PTCARENOTE ---
Provided patient with Sitz bath. Instructed patient sitz bath is to done twice a day.
--- NOTE | 2024-12-02 13:52 | W.PN.HOSP.TC ---
Today's Communication/Plan
-
maintain on abx
steroids per GI
f/u sig biopsy report
Assessment / Plan
Assessment / Plan
CT a/p
1. Findings consistent with infectious or inflammatory colitis involving the rectum, sigmoid, descending, and transverse colon. No pneumatosis intestinalis or extraluminal air.
2. Small perirectal abscess to the right of the rectum, measuring 1.8 x 1.7 x 0.6 cm.
3. Small right adrenal nodule measures 6 mm in diameter, too small for accurate imaging characterization.

1. Renee-rectal abscess
-initially diagnosed on CT abdomen pelvis in [facility] approximately 1 week back and patient was provided oral Augmentin course.
- Repeat CT abdomen pelvis showing nonresolution with patient symptoms persisting and have new fever.
- Patient underwent attempted I&D of rectal abscess although no drainable collection was found. CRS recommended patient to have twice daily sitz bath for a week
- Maintain on empiric zosyn for now
2. Ulcerative colitis
- Cdiff neg. stool culture for bacterial pathogen neg . fecal calprotection check ordered.
- Taken off mesalamine
- Patient started on methylprednisone
- Underwent sigmoidoscopy with biopsy sample taken, suspected patient to have Crohn's disease and not ulcerative colitis
3. Tobacco use
- cessation recommended.
4. Dep/anxiety
- maintain on home dose paroxetine
Full code
Care plan discussed with gastroenterology
Anticipated Discharge: 24 - 48 hours
Subjective/Interval History
-
Date of Service: December 02, 2024
Some lower abdominal discomfort
Afebrile
No nausea vomiting
Objective Data
-
Labs:
Laboratory Results
12/02/24
06:54
WBC 11.6 H
Hgb 9.5 L
Hct 29.9 L
Plt Count 413 H D
Sodium 138
Potassium 3.8
Chloride 104
Carbon Dioxide 25
BUN 3 L
Creatinine 0.5 L
Glucose 117 H
Calcium 8.1 L
Vital Signs:
Vital Signs
Temp Pulse Resp BP Pulse Ox
97.8 F 70 12 140/82 99
12/02/24 10:29 12/02/24 10:29 12/02/24 10:29 12/02/24 10:29 12/02/24 10:29
I&O
12/01/24 12/02/24 12/03/24
06:59 06:59 06:59
Intake Total 720 / 720 1520 / 1520
Balance 720 / 720 1520 / 1520
Review of Systems
-
Respiratory: Reports No Symptoms
Cardiac: Reports No Symptoms
Abdomen/GI: Reports No Symptoms
Physical Exam
-
General: No Apparent Distress and Comfortable
HEENT: Negative Oxygen
GI: Soft and Tender
Musculoskeletal: No Edema
Neuro: Awake, Alert, Oriented, No Motor Deficits and Nonfocal/Grossly Intact
Psych: Calm
[2024-12-02] MEDS: LOVENOX 40 MG SC (16:48)
--- NOTE | 2024-12-02 17:28 | CM ---
Postop day 1 for a perianal abscess .
Pt had endoscopy today.'
Started on steroids.
IV fluids.
Offered V she declined .
Family will drive [place]
PLAN; Home no needs
[2024-12-02 22:00] LABS: Calprotectin, Fecal 1970 ug/g (<=49)
[2024-12-03] MEDS: NSS 1000 IV (02:40)
[2024-12-03] MEDS: ZOSYN 50 IV ×2 (05:19→11:36)
[2024-12-03 06:55] LABS: Hematocrit 25.8 % (37.0-47.0); Hemoglobin 8.0 g/dL (12.0-16.0); Mean Corp Hgb Conc. 31.0 g/dL (33.0-37.0); Mean Corpuscular Volume 74.4 fL (81.0-99.0); Platelet Count 289 10^3/uL (130-400); Red Cell Dist. Width 13.2 % (11.5-14.5)
[2024-12-03] MEDS: SOLU-MEDROL PF 20 MG IV ×3 (07:18→23:02)
[2024-12-03] MEDS: PAXIL 10 MG PO (07:18)
[2024-12-03 07:21] LABS: Blood Urea Nitrogen 4 mg/dl (7-17); Calcium 8.0 mg/dl (8.4-10.2); Carbon Dioxide 31 mmol/L (22-30); Chloride 105 mmol/L (98-107); Estimated Creatinine Clearance 92 ml/min; Glucose 125 mg/dl (70-99); Potassium 3.4 mmol/L (3.5-5.1); Sodium 138 mmol/L (135-145); eGFR > 60.00
[2024-12-03 07:36] VITALS: BP 138/90
[2024-12-03] MEDS: DILAUDID 0.5 MG IV ×2 (08:56→19:48)
[2024-12-03] MEDS: ROXICODONE 5 MG PO ×3 (11:36→21:38)
--- NOTE | 2024-12-03 13:50 | W.PN.HOSP.TC ---
Today's Communication/Plan
-
see note
Assessment / Plan
Assessment / Plan
CT a/p
1. Findings consistent with infectious or inflammatory colitis involving the rectum, sigmoid, descending, and transverse colon. No pneumatosis intestinalis or extraluminal air.
2. Small perirectal abscess to the right of the rectum, measuring 1.8 x 1.7 x 0.6 cm.
3. Small right adrenal nodule measures 6 mm in diameter, too small for accurate imaging characterization.

1. Renee-rectal abscess
-initially diagnosed on CT abdomen pelvis in [facility] approximately 1 week back and patient was provided oral Augmentin course.
- Repeat CT abdomen pelvis showing nonresolution with patient symptoms persisting and have new fever.
- Patient underwent attempted I&D of rectal abscess although no drainable collection was found. CRS recommended patient to have twice daily sitz bath for a week
- On empiric Zosyn, changing it to ciprofloxacin and flagyl to help alleviate GI symptoms if compounded by zosyn
2. Crohn's disease
(formal dx of UC)
- Cdiff neg. stool culture for bacterial pathogen neg . fecal calprotection check ordered.
- Taken off mesalamine
- Patient started on methylprednisone
- Underwent sigmoidoscopy with biopsy sample taken, suspected patient to have Crohn's disease and not ulcerative colitis
- Fecal calprotectin 1970, CRP 180 > 166,
3. Tobacco use
- cessation recommended.
4. Dep/anxiety
- maintain on home dose paroxetine
Full code
Discussed with GI
Anticipated Discharge: 24 - 48 hours
Subjective/Interval History
-
Date of Service: December 03, 2024
still having some abd pain
no nausea/vomiting
Objective Data
-
Labs:
Laboratory Results
12/03/24
06:21
WBC 8.6
Hgb 8.0 L
Hct 25.8 L
Plt Count 289 D
Sodium 138
Potassium 3.4 L
Chloride 105
Carbon Dioxide 31 H
BUN 4 L
Creatinine 0.6
Glucose 125 H
Calcium 8.0 L
Vital Signs:
Vital Signs
Temp Pulse Resp BP Pulse Ox
98.2 F 72 16 138/90 96
12/03/24 07:36 12/03/24 07:36 12/03/24 07:36 12/03/24 07:36 12/03/24 07:36
I&O
12/02/24 12/03/24 12/04/24
06:59 06:59 06:59
Intake Total 1520 / 1520 1190 / 1190
Balance 1520 / 1520 1190 / 1190
Review of Systems
-
Respiratory: Reports No Symptoms
Cardiac: Reports No Symptoms
Abdomen/GI: Reports Abdominal Pain and Diarrhea; Denies Nausea or Vomiting
Physical Exam
-
General: No Apparent Distress and Comfortable
HEENT: Negative Oxygen
Neuro: Awake, Alert, Oriented, No Motor Deficits and Nonfocal/Grossly Intact
Psych: Calm
--- NOTE | 2024-12-03 13:59 | W.PN.GI.CBS2 ---
Today's Communication / Plan
-
-- Gas-X as needed
-- Trend CRP
-- Started IV iron
Assessment / Plan
-
Angella is a 43-year-old female with past medical history of ulcerative colitis diagnosed 3 years ago presented with bloody diarrhea, followed by [facility] with left-sided colitis on mesalamine, never hospitalized, never steroids except suppositories.
Patient was admitted with a perirectal abscess with unsuccessful I&D currently on antibiotics who underwent flexible sigmoidoscopy on 12/02/2024 showing normal rectum, minimal sigmoid congestion, significant moderate to severe inflammation with
ulcerations mucus mimicking a Ryan 3 of the descending and transverse colon
-- Biopsies taken
# Crohn's colitis complicated by perianal abscess not on biologic
-- Unsuccessful I&D
-- On antibiotics -discussed with Dr. Finn which should be on for 14 days
-- Not significantly improving despite IV steroids which were started on 12/01/2024
-- Trend CRP
-- Start IV iron
-- Continue DVT prophylaxis
-- Patient to chart number, consistency and blood in her stools
-- Gave her Gas-X per request for the bloating
-- If not improving tomorrow, will attempt inpatient Remicade
-- Her leukocytosis is improving, her CRP is at least going down. Will check it tomorrow and trend.
No significant utility in trending calprotectin inpatient as it takes too long to get results
--- Okay to continue low residue low lactose diet as tolerated
Subjective
Subjective
Date of Service: December 03, 2024
Patient had roughly 6 or 7 bowel movements yesterday. I reviewed pictures some with blood, mucus nothing with form. Did have bowel movements overnight. Having some upper abdominal discomfort. No significant perianal pain
Objective
Data Reviewed
Laboratory Data:
Laboratory Results
12/03/24 06:21
12/03/24 06:21
Laboratory Results
Magnesium 1.9 mg/dl (1.6-2.3) 11/30/24 06:16
Total Bilirubin 0.3 mg/dl (0.2-1.3) 11/29/24 17:20
AST 14 U/L (14-36) 11/29/24 17:20
ALT 11 U/L (0-35) 11/29/24 17:20
Alkaline Phosphatase 81 U/L (38-126) 11/29/24 17:20
Lipase 39 U/L (23-300) 11/29/24 17:20
Vital Signs and I&O:
Vital Signs
Temp Pulse Resp BP Pulse Ox
98.2 F 72 16 138/90 96
12/03/24 07:36 12/03/24 07:36 12/03/24 07:36 12/03/24 07:36 12/03/24 07:36
I&O
12/02/24 12/03/24 12/04/24
06:59 06:59 06:59
Intake Total 1520 / 1520 1190 / 1190
Balance 1520 / 1520 1190 / 1190
Physical Exam
Physical Exam
HEENT: Anicteric
Pulmonary: Clear
GI: Soft and Tender (Mildly tender)
Extremities: No Edema
Neuro: Non Focal
[2024-12-03] MEDS: FERRLECIT 110 MG IV (14:31)
[2024-12-03] MEDS: PROTONIX 40 MG PO (14:31)
[2024-12-03 15:17] VITALS: BP 130/77
[2024-12-03] MEDS: FLAGYL 500 MG PO ×2 (15:57→23:01)
[2024-12-03] MEDS: LOVENOX SC (16:06)
[2024-12-03] MEDS: CIPRO 500 MG PO (19:48)
[2024-12-03 19:50] VITALS: BP 146/93
[2024-12-03 23:13] VITALS: BP 125/70
[2024-12-04] VITALS (17 sets, daily range): BP systolic 128–165; BP diastolic 71–96
[2024-12-04] MEDS: TYLENOL 650 MG PO ×4 (07:05→21:50)
[2024-12-04 08:02] LABS: Blood Urea Nitrogen 5 mg/dl (7-17); Calcium 8.6 mg/dl (8.4-10.2); Carbon Dioxide 31 mmol/L (22-30); Chloride 102 mmol/L (98-107); Estimated Creatinine Clearance 92 ml/min; Glucose 108 mg/dl (70-99); Potassium 3.8 mmol/L (3.5-5.1); Sodium 138 mmol/L (135-145); eGFR > 60.00
[2024-12-04 08:28] LABS: Hematocrit 29.5 % (37.0-47.0); Hemoglobin 9.3 g/dL (12.0-16.0); Mean Corp Hgb Conc. 31.5 g/dL (33.0-37.0); Mean Corpuscular Volume 73.8 fL (81.0-99.0); Platelet Count 405 10^3/uL (130-400); Red Cell Dist. Width 13.0 % (11.5-14.5)
[2024-12-04] MEDS: PROTONIX 40 MG PO (08:38)
[2024-12-04] MEDS: FLAGYL 500 MG PO ×3 (08:39→22:59)
[2024-12-04] MEDS: SOLU-MEDROL PF 20 MG IV ×3 (08:39→22:59)
[2024-12-04] MEDS: CIPRO 500 MG PO ×2 (08:39→21:42)
[2024-12-04] MEDS: PAXIL 10 MG PO (08:40)
[2024-12-04 08:47] LABS: C-Reactive Protein 33.80 mg/L (0.0-10.00)
[2024-12-04] MEDS: ROXICODONE 5 MG PO ×2 (12:42→17:51)
--- NOTE | 2024-12-04 12:42 | W.PN.HOSP.TC ---
Today's Communication/Plan
-
maintain on current diet
continue on iv steroids
possible d/c tomorrow vs day after
Assessment / Plan
Assessment / Plan
CT a/p
1. Findings consistent with infectious or inflammatory colitis involving the rectum, sigmoid, descending, and transverse colon. No pneumatosis intestinalis or extraluminal air.
2. Small perirectal abscess to the right of the rectum, measuring 1.8 x 1.7 x 0.6 cm.
3. Small right adrenal nodule measures 6 mm in diameter, too small for accurate imaging characterization.

1. Renee-rectal abscess
-initially diagnosed on CT abdomen pelvis in [facility] approximately 1 week back and patient was provided oral Augmentin course.
- Repeat CT abdomen pelvis showing nonresolution with patient symptoms persisting and have new fever.
- Patient underwent attempted I&D of rectal abscess although no drainable collection was found. CRS recommended patient to have twice daily sitz bath for a week
- On empiric Zosyn, changed it to ciprofloxacin and flagyl to help alleviate GI symptoms if compounded by zosyn
2. Crohn's disease
(formal dx of UC)
- Cdiff neg. stool culture for bacterial pathogen neg .
- Taken off mesalamine
- Underwent sigmoidoscopy with biopsy sample taken, suspected patient to have Crohn's disease and not ulcerative colitis
- Fecal calprotectin 1970, CRP 180 > 166 > 33
- Having appropriate response to IV steroids, GI was considering remicaide infusion inpt, possibly not needed at this point
3. Tobacco use
- cessation recommended.
4. Dep/anxiety
- maintain on home dose paroxetine
Full code
Discussed with GI
Anticipated Discharge: 24 - 48 hours
Subjective/Interval History
-
Date of Service: December 04, 2024
abd pain is better
still have diarrhea with some blood in stool
no n/v
Objective Data
-
Labs:
Laboratory Results
12/04/24
07:06
WBC 9.4
Hgb 9.3 L
Hct 29.5 L
Plt Count 405 H D
Sodium 138
Potassium 3.8
Chloride 102
Carbon Dioxide 31 H
BUN 5 L
Creatinine 0.6
Glucose 108 H
Calcium 8.6
Vital Signs:
Vital Signs
Temp Pulse Resp BP Pulse Ox
98.3 F 59 16 143/85 96
12/04/24 07:00 12/04/24 07:00 12/04/24 07:00 12/04/24 07:00 12/04/24 08:00
I&O
12/03/24 12/04/24 12/05/24
06:59 06:59 06:59
Intake Total 1190 / 1190 1200 / 1200
Balance 1190 / 1190 1200 / 1200
Review of Systems
-
Respiratory: Reports No Symptoms
Cardiac: Reports No Symptoms
Abdomen/GI: Reports Abdominal Pain and Diarrhea; Denies Nausea or Vomiting
Physical Exam
-
General: No Apparent Distress and Comfortable
HEENT: Negative Oxygen
Neuro: Awake, Alert, Oriented, No Motor Deficits and Nonfocal/Grossly Intact
Psych: Calm
[2024-12-04] MEDS: FERRLECIT 110 MG IV (13:12)
--- NOTE | 2024-12-04 14:19 | W.PN.GI.CBS2 ---
Today's Communication / Plan
-
-- IV inpatient remicade 300mg today
Assessment / Plan
-
Angella is a 43-year-old female with past medical history of ulcerative colitis diagnosed 3 years ago presented with bloody diarrhea, followed by [facility] with left-sided colitis on mesalamine, never hospitalized, never steroids except suppositories.
Patient was admitted with a perirectal abscess with unsuccessful I&D currently on antibiotics who underwent flexible sigmoidoscopy on 12/02/2024 showing normal rectum, minimal sigmoid congestion, significant moderate to severe inflammation with
ulcerations mucus mimicking a Ryan 3 of the descending and transverse colon
-- Biopsies taken
# Crohn's colitis complicated by perianal abscess not on biologic
-- Unfortunately not significantly improving, still having 6-7 loose with occasional blood and abdominal cramping despite 3 days of IV steroids
--Added on LFT panel
--Will start Remicade 5 mg/kg = 300 mg today will premedicate with Tylenol and Benadryl
-- Unsuccessful I&D
-- On antibiotics -discussed with Dr. Finn which should be on for 14 days
-- IV steroids which were started on 12/01/2024
-- Trend CRP
-- Getting IV iron
-- Continue DVT prophylaxis
-- Patient to continue to chart number, consistency and blood in her stools
-- Gave her Gas-X per request for the bloating
-- Her leukocytosis is improving, her CRP is at least going down. Will check it tomorrow and trend.
No significant utility in trending calprotectin inpatient as it takes too long to get results
--- Okay to continue low residue low lactose diet as tolerated
Subjective
Subjective
Date of Service: December 04, 2024
Reviewed stool history chart with patient. Still having 6-7 crampy with abdominal pain, tenesmus, some blood on IV steroids
Objective
Data Reviewed
Laboratory Data:
Laboratory Results
12/04/24 07:06
12/04/24 07:06
Laboratory Results
Magnesium 1.9 mg/dl (1.6-2.3) 11/30/24 06:16
Total Bilirubin 0.3 mg/dl (0.2-1.3) 11/29/24 17:20
AST 14 U/L (14-36) 11/29/24 17:20
ALT 11 U/L (0-35) 11/29/24 17:20
Alkaline Phosphatase 81 U/L (38-126) 11/29/24 17:20
Lipase 39 U/L (23-300) 11/29/24 17:20
Vital Signs and I&O:
Vital Signs
Temp Pulse Resp BP Pulse Ox
98.3 F 59 16 143/85 96
12/04/24 07:00 12/04/24 07:00 12/04/24 07:00 12/04/24 07:00 12/04/24 08:00
I&O
12/03/24 12/04/24 12/05/24
06:59 06:59 06:59
Intake Total 1190 / 1190 1200 / 1200
Balance 1190 / 1190 1200 / 1200
Physical Exam
Physical Exam
HEENT: Anicteric
Cardiology: Normal Sinus Rhythm
GI: Soft and Non Tender (Much less tender)
Extremities: No Edema
Neuro: Non Focal
[2024-12-04 15:07] LABS: ALT (SGPT) 40 U/L (0-35); AST (SGOT) 57 U/L (14-36); Albumin 3.3 g/dl (3.5-5.0); Alkaline Phosphatase 70 U/L (38-126); Total Protein 6.0 g/dl (6.3-8.2)
[2024-12-04] MEDS: BENADRYL 50 MG PO (15:19)
[2024-12-04] MEDS: REMICADE 250 MG IV (16:03)
[2024-12-04] MEDS: LOVENOX SC (17:10)
[2024-12-04] MEDS: LOVENOX 40 MG SC (17:28)
[2024-12-04] MEDS: DILAUDID 0.5 MG IV (22:54)
[2024-12-04] MEDS: FLUSH (NSS) 2 FLUSH IV (22:55)
[2024-12-05] MEDS: PROTONIX IV 40 MG IV (03:40)
[2024-12-05] MEDS: FLUSH (NSS) 2 FLUSH IV (03:41)
[2024-12-05] MEDS: NSS (PRESERVATIVE FREE) 10 ML IV (03:41)
[2024-12-05] MEDS: TYLENOL 650 MG PO ×2 (03:49→09:40)
--- NOTE | 2024-12-05 06:00 | PTCARENOTE ---
1 stool during the night w/o visible blood. Pt c/o 'burning in stomach'. Protonix IV ordered & adm w/effect.
[2024-12-05] MEDS: ROXICODONE 5 MG PO (07:57)
[2024-12-05] MEDS: SOLU-MEDROL PF 20 MG IV (07:57)
[2024-12-05] MEDS: FLAGYL 500 MG PO ×3 (07:57→23:01)
[2024-12-05] MEDS: PAXIL 10 MG PO (07:57)
[2024-12-05] MEDS: PROTONIX 40 MG PO (07:57)
[2024-12-05] MEDS: CIPRO 500 MG PO ×2 (07:57→20:05)
[2024-12-05] MEDS: MYLICON 80 MG PO ×2 (08:06→22:51)
[2024-12-05 08:29] VITALS: BP 120/70
[2024-12-05 08:44] LABS: Hematocrit 34.8 % (37.0-47.0); Hemoglobin 10.8 g/dL (12.0-16.0); Mean Corp Hgb Conc. 31.0 g/dL (33.0-37.0); Mean Corpuscular Volume 73.4 fL (81.0-99.0); Platelet Count 486 10^3/uL (130-400); Red Cell Dist. Width 13.0 % (11.5-14.5)
[2024-12-05 09:07] LABS: ALT (SGPT) 77 U/L (0-35); AST (SGOT) 72 U/L (14-36); Albumin 3.6 g/dl (3.5-5.0); Alkaline Phosphatase 76 U/L (38-126); Blood Urea Nitrogen 6 mg/dl (7-17); Calcium 8.7 mg/dl (8.4-10.2); Carbon Dioxide 32 mmol/L (22-30); Chloride 99 mmol/L (98-107); Estimated Creatinine Clearance 92 ml/min; Glucose 104 mg/dl (70-99); Potassium 3.9 mmol/L (3.5-5.1); Sodium 137 mmol/L (135-145); Total Protein 6.5 g/dl (6.3-8.2); eGFR > 60.00
[2024-12-05 09:08] LABS: C-Reactive Protein 22.40 mg/L (0.0-10.00)
--- NOTE | 2024-12-05 11:28 | W.PN.GI.CBS2 ---
Addendum entered and electronically signed by Monisha Alexander DO 12/05/24 11:44:
patient will have an appt on 12/12/[address] Hoffman - my office will call her with the time and confirm the date
Original Note:
Today's Communication / Plan
-
-- Transitioning to oral steroids
-- Avoid Tylenol
-- Hopeful discharge tomorrow if continues to do well
-- Working on finding her an outpatient appointment next week with Dr. Hoffman
Assessment / Plan
-
Angella is a 43-year-old female with past medical history of ulcerative colitis diagnosed 3 years ago presented with bloody diarrhea, followed by [facility] with left-sided colitis on mesalamine, never hospitalized, never steroids except suppositories.
Patient was admitted with a perirectal abscess with unsuccessful I&D currently on antibiotics who underwent flexible sigmoidoscopy on 12/02/2024 showing normal rectum, minimal sigmoid congestion, significant moderate to severe inflammation with
ulcerations mucus mimicking a Ryan 3 of the descending and transverse colon
-- Biopsies taken
# Crohn's colitis complicated by perianal abscess not on biologic
-- Unfortunately wasnt significantly improving with 6-7 loose with occasional blood and abdominal cramping despite 3 days of IV steroids (started on 12/01/2024)
--Was given Remicade 5 mg/kg = 300 mg 12/04/2024 and premedicated with Tylenol and Benadryl
-- Unsuccessful I&D
-- On antibiotics -discussed with Dr. Finn which should be on for 14 days
CRP much improving, hemoglobin improving and getting IV iron--
-- Continue DVT prophylaxis -I did not realize patient was refusing. Discussed it last night and she did take it yesterday
-- Patient to continue to chart number, consistency and blood in her stools
-- Gave her Gas-X per request for the bloating
--- Okay to continue low residue low lactose diet as tolerated
Major plan for today is to transition over to oral steroids. If she does well over the next 24 hours potential discharge home tomorrow
Patient will follow-up with Dr. Hoffman outpatient
# Mild hepatocellular injury -likely from all the medications, antibiotics. Was elevated prior to Remicade
--Was normal on admission
-- DC Tylenol
-- Use tramadol as needed for pain
-- Will monitor outpatient
Subjective
Subjective
Date of Service: December 05, 2024
Stools have slightly more formed, no more blood. Still has some intermittent burning type abdominal pain but it is tolerable. Tolerated the Remicade well yesterday
Objective
Data Reviewed
Laboratory Data:
Laboratory Results
12/05/24 07:33
12/05/24 07:33
Laboratory Results
Magnesium 1.9 mg/dl (1.6-2.3) 11/30/24 06:16
Total Bilirubin 0.3 mg/dl (0.2-1.3) 12/05/24 07:33
AST 72 U/L (14-36) H 12/05/24 07:33
ALT 77 U/L (0-35) H 12/05/24 07:33
Alkaline Phosphatase 76 U/L (38-126) 12/05/24 07:33
Lipase 39 U/L (23-300) 11/29/24 17:20
Vital Signs and I&O:
Vital Signs
Temp Pulse Resp BP Pulse Ox
98.7 F 70 18 120/70 97
12/05/24 08:29 12/05/24 08:29 12/05/24 08:29 12/05/24 08:29 12/05/24 08:29
I&O
12/04/24 12/05/24 12/06/24
06:59 06:59 06:59
Intake Total 1200 / 1200 1440 / 1440
Balance 1200 / 1200 1440 / 1440
Physical Exam
Physical Exam
HEENT: Anicteric
Cardiology: Normal Sinus Rhythm
Pulmonary: Clear
GI: Soft, Non Distended and Tender (Mild tenderness but much improved)
Extremities: No Edema
Neuro: Non Focal
--- NOTE | 2024-12-05 11:46 | W.PN.CRS1 ---
Today's Communication / Plan
-
sitz baths
maintain diet
colitis meds per GI
follow with Dr. Finn in 1 week from discharge
Assessment/Plan
-
POD 4.
CRP: 22.40 (33.80, 166.10)
WBC: 13.5 (9.4)
1. Sitz baths BID for a week.
2. Medical management per GI/hospitalist.
3. Will follow from afks. She should follow up with Dr. Finn in the office a few weeks after discharge.
Subjective Data
Procedure
anal EUA with attempted I and D perianal abscess on 12/02/24
Subjective Data
Date of Service: December 05, 2024
Patient states her stool frequency has gone down. She is compression molding machine tender but improving. Denies any bleeding. Tolerating a diet. Denies nausea or vomiting.
Objective Data
-
Vital Signs
Temp Pulse Resp BP Pulse Ox
98.7 F 70 18 120/70 97
12/05/24 08:29 12/05/24 08:29 12/05/24 08:29 12/05/24 08:29 12/05/24 08:29
Intake & Output
12/04/24 12/05/24 12/06/24
06:59 06:59 06:59
Intake Total 1200 / 1200 1440 / 1440
Balance 1200 / 1200 1440 / 1440
Intake:
Oral fluids 1200 / 1200 1080 / 1080
IV piggybacks 360 / 360
Other:
Number of approximated SMALL 1
amounts of urine
Number of approximated MODERATE 3 4
amounts of urine
Lab Results
12/05/24 07:33
12/05/24 07:33
Physical Exam
-
General: No Acute Distress and AOx3
Abdomen: Soft, Non Distended and Tender (mild)
Skin: Warm and Dry
[2024-12-05] MEDS: DELTASONE 40 MG PO (12:10)
--- NOTE | 2024-12-05 12:46 | W.PN.HOSP.TC ---
Today's Communication/Plan
-
Assessment / Plan
Assessment / Plan
General: No Apparent Distress, Comfortable and Conversant
HEENT: NormoCephalic, Moist mucous membranes, Atraumatic
Respiratory: Clear and Non Labored Respirations
Cardiac: S1/S2 and Regular Rhythm; No Rub or Gallop
GI: Soft, Non Tender, Non Distended and Normal Bowel Sounds
Musculoskeletal: No Edema, no deformity
: NO Momin
Neuro: Awake, Alert, Nonfocal/grossly intact
Psych: Calm and Intact Judgment/Insight
CT a/p
1. Findings consistent with infectious or inflammatory colitis involving the rectum, sigmoid, descending, and transverse colon. No pneumatosis intestinalis or extraluminal air.
2. Small perirectal abscess to the right of the rectum, measuring 1.8 x 1.7 x 0.6 cm.
3. Small right adrenal nodule measures 6 mm in diameter, too small for accurate imaging characterization.

1. Renee-rectal abscess
-initially diagnosed on CT abdomen pelvis in [facility] approximately 1 week back and patient was provided oral Augmentin course.
- Repeat CT abdomen pelvis showing nonresolution with patient symptoms persisting and have new fever.
- Patient underwent attempted I&D of rectal abscess although no drainable collection was found. CRS recommended patient to have twice daily sitz bath for a week
- On empiric Zosyn, changed it to ciprofloxacin and flagyl to help alleviate GI symptoms if compounded by zosyn
2. Crohn's disease
(formal dx of UC)
- Cdiff neg. stool culture for bacterial pathogen neg .
- Taken off mesalamine
- Underwent sigmoidoscopy with biopsy sample taken, suspected patient to have Crohn's disease and not ulcerative colitis
- Fecal calprotectin 1970, CRP 180 > 166 > 33
- Having appropriate response to IV steroids
- Started on Remicade infusion 12/04
- Steroids transitioned to oral prednisone starting today 12/05
- Clinically improving, if remains stable over the next 24 hours we will plan discharge to home with outpatient follow-up
3. Tobacco use
- cessation recommended.
4. Dep/anxiety
- maintain on home dose paroxetine
Full code
Discussed with GI
Total time spent 54 minutes.
Anticipated Discharge: 24 - 48 hours
Subjective/Interval History
-
Date of Service: December 05, 2024
Patient was seen and examined at bedside this morning. Has been experiencing burning epigastric and esophageal sensations overnight which were improved after titration of IV PPI.
Objective Data
-
Labs:
Laboratory Results
12/05/24
07:33
WBC 13.5 H
Hgb 10.8 L
Hct 34.8 L
Plt Count 486 H
Sodium 137
Potassium 3.9
Chloride 99
Carbon Dioxide 32 H
BUN 6 L
Creatinine 0.6
Glucose 104 H
Calcium 8.7
Total Bilirubin 0.3
AST 72 H
ALT 77 H
Alkaline Phosphatase 76
Vital Signs:
Vital Signs
Temp Pulse Resp BP Pulse Ox
98.7 F 70 18 120/70 97
12/05/24 08:29 12/05/24 08:29 12/05/24 08:29 12/05/24 08:29 12/05/24 08:29
I&O
12/04/24 12/05/24 12/06/24
06:59 06:59 06:59
Intake Total 1200 / 1200 1440 / 1440
Balance 1200 / 1200 1440 / 1440
Review of Systems
-
History Source: Patient
All other systems: Reviewed and negative
Abdomen/GI: Reports Abdominal Pain, Pain and GERD
Physical Exam
-
General: No Apparent Distress
[2024-12-05] MEDS: FERRLECIT 110 MG IV (13:19)
[2024-12-05] MEDS: ULTRAM 50 MG PO (15:10)
[2024-12-05 15:56] VITALS: BP 147/84
[2024-12-05] MEDS: LOVENOX 40 MG SC (17:08)
[2024-12-05] MEDS: DILAUDID 0.5 MG IV ×2 (18:01→22:51)
[2024-12-05 23:15] VITALS: BP 135/87
[2024-12-06 02:10] VITALS: BP 152/91
[2024-12-06 07:00] VITALS: BP 143/84
[2024-12-06] MEDS: FLAGYL 500 MG PO (08:16)
[2024-12-06] MEDS: DELTASONE 40 MG PO (08:16)
[2024-12-06] MEDS: CIPRO 500 MG PO (08:16)
[2024-12-06] MEDS: PAXIL 10 MG PO (08:16)
[2024-12-06] MEDS: PROTONIX 40 MG PO (08:16)
--- NOTE | 2024-12-06 10:04 | W.PN.CRS1 ---
Today's Communication / Plan
-
improving
follow up with Dr. Finn in 2 weeks
Assessment/Plan
-
POD 5.
CRP: pending
no labs today, afebrile
1. Sitz baths BID for a week.
2. Medical management per GI/hospitalist.
3. Will follow from afar. She should follow up with Dr. Finn in the office a few weeks after discharge.
Subjective Data
Procedure
anal EUA with attempted I and D perianal abscess on 12/02/24
Subjective Data
Date of Service: December 06, 2024
Patient states she feels better. She is having less frequent stools. Pain is improving.
Objective Data
-
Vital Signs
Temp Pulse Resp BP Pulse Ox
97.9 F 89 16 143/84 96
12/06/24 07:00 12/06/24 07:00 12/06/24 07:00 12/06/24 07:00 12/06/24 07:00
Intake & Output
12/05/24 12/06/24 12/07/24
06:59 06:59 06:59
Intake Total 1440 / 1440 1790 / 1790
Balance 1440 / 1440 1790 / 1790
Intake:
Oral fluids 1080 / 1080 1680 / 1680
IV fluids (Total) 110 / 110
IV piggybacks 360 / 360
Other:
Number of approximated SMALL 1
amounts of urine
Number of approximated MODERATE 4 3
amounts of urine
Lab Results
12/05/24 07:33
12/05/24 07:33
Physical Exam
-
General: No Acute Distress and AOx3
Abdomen: Soft, Non Distended and Tender (mild)
Skin: Warm and Dry
[2024-12-06] MEDS: ROXICODONE 5 MG PO (11:00)
[2024-12-06 11:05] LABS: C-Reactive Protein 13.60 mg/L (0.0-10.00)
--- NOTE | 2024-12-06 11:56 | W.DCSUMMARY ---
Discharge Summary
Discharge Data
Date of Admission: 11/30/24
Date of Discharge: 12/06/24
Total time spent discharging patient (in min): 56
-
Pending Results: No
Hospital Course
Ms. Gaines is a 43-year-old female with a medical history of ulcerative colitis (diagnosed 3 years ago) and a recent diagnosis of perirectal abscess (treated with oral antibiotics) who presented with severe abdominal pain with associated mucus
containing stools and chills with rigors. She was started on IV antibiotics and admitted for further evaluation and management. She was brought to the OR on 12/01 by colorectal surgery for anorectal exam under anesthesia however no pus was able to
be expressed from the area of her perirectal abscess. She underwent sigmoidoscopy on 12/02 with findings consistent with Crohn's disease rather than ulcerative colitis. She was trialed on a course of IV steroids with some improvement. On 12/04 she
was started on Remicade. Her symptoms have significantly improved. She has been transitioned to an oral prednisone regimen which she will continue for at least 2 weeks until she follows up in the gastroenterology office on 12/12 at 2:30 PM with "Josef for further management. She will also be continued on oral antibiotics to complete a total 2-week course. She should take [id number] calcium and vitamin D and Pepcid 20 mg daily. The colorectal surgery team recommends continuing
sitz baths twice a day for a week. She can continue on a p.o. diet as tolerated. She will be given a short course of pain medications. At time of hospital discharge she was medically stable.
General: No Apparent Distress, Comfortable and Conversant
HEENT: NormoCephalic, Moist mucous membranes, Atraumatic
Respiratory: Clear and Non Labored Respirations
Cardiac: S1/S2 and Regular Rhythm; No Rub or Gallop
GI: Soft, Non Tender, Non Distended and Normal Bowel Sounds
Musculoskeletal: No Edema, no deformity
: NO Momin
Neuro: Awake, Alert, Nonfocal/grossly intact
Psych: Calm and Intact Judgment/Insight
Discharge Plan
-
Patient Disposition: Home (Routine Discharge)
Discharge Diagnosis/Procedures: Crohn's colitis complicated by perianal abscess
Activity Restrictions/Additional Instructions:
Ms. Gaines is a 43-year-old female with a medical history of ulcerative colitis (diagnosed 3 years ago) and a recent diagnosis of perirectal abscess (treated with oral antibiotics) who presented with severe abdominal pain with associated mucus
containing stools and chills with rigors. She was started on IV antibiotics and admitted for further evaluation and management. She was brought to the OR on 12/01 by colorectal surgery for anorectal exam under anesthesia however no pus was able to
be expressed from the area of her perirectal abscess. She underwent sigmoidoscopy on 12/02 with findings consistent with Crohn's disease rather than ulcerative colitis. She was trialed on a course of IV steroids with some improvement. On 12/04 she
was started on Remicade. Her symptoms have significantly improved. She has been transitioned to an oral prednisone regimen which she will continue for at least 2 weeks until she follows up in the gastroenterology office on 12/12 at 2:30 PM with "Kimberly"Dalton for further management. She will also be continued on oral antibiotics to complete a total 2-week course. She should take vczm-goh-[id number] calcium and vitamin D and Pepcid 20 mg daily. The colorectal surgery team recommends continuing
sitz baths twice a day for a week. She can continue on a p.o. diet as tolerated. She will be given a short course of pain medications. At time of hospital discharge she was medically stable.
Stand Alone Forms: Return to Work
Referrals:
Joby Finn MD [Active, ColoRectal] - in two weeks
Benjamin Garcia MD [Family Provider, Family Practice]
Doreen Hoffman MD [Active, Gastroenterology] - 12/12/24 2:30 pm
Referral Note: follow up with Dr. Hoffman next week as scheduled
Prescriptions:
New
prednisone 20 mg Tablet
40 mg PO DAILY 14 Days Qty: 28 0RF
metronidazole 500 mg Tablet
500 mg PO Q8 8 Days Qty: 24 0RF
ciprofloxacin HCl 500 mg Tablet
500 mg PO BID 8 Days Qty: 16 0RF
pantoprazole 40 mg Tablet,Delayed Release (Dr/Ec)
40 mg PO DAILY 30 Days Qty: 30 0RF
oxycodone 5 mg Tablet
5 mg PO Q4HPRN PRN (Reason: mild-mod pain) Qty: 12 0RF
calcium carbonate-vitamin D3 [Calcium 500 + D] 500 mg-10 mcg (400 unit) tablet
1 tab PO DAILY Qty: 30 0RF
Continued
paroxetine HCl 10 mg tablet
10 mg PO DAILY
Discontinued
mesalamine 1.2 gram tablet,delayed release (DR/EC)
2.4 g PO DAILY
Discharge Orders:
Discharge Patient (As Directed); Ordered 12/06/24
Ordered By: Bruce Carney
Discharge Date and Time
Print Language: MACEDONIAN
--- NOTE | 2024-12-06 12:51 | CM ---
MD entered order for discharge.
Changed to po steroids.
Offered VN she declined .
Family will drive her home at dc.
PLAN; Home no needs
[2024-12-06 12:52] VITALS: BP 141/88
== END 2024-12-06 13:50 | disposition home or self-care (01) | DRG 386 ==
LOC: 4 EAST ACU 02:09
PROVIDERS: Emergency Medicine; Hospitalist; Internal Medicine; Physician Assistant; Surgery; ADMITTING PHYSICIAN Internal Medicine; ATTENDING PHYSICIAN Internal Medicine; CONSULT PHYSICIAN Internal Medicine Gastroenterology; EMERGENCY PHYSICIAN Student in an Organized Health Care Education/Training Program; FAMILY PHYSICIAN Family Medicine; OTHER PHYSICIAN Surgery
PROC: 0DJD8ZZ Inspection of Lower Intestinal Tract, Via Natural or Artificial Opening Endoscopic (ICD-10-PCS; 2024-12-01)
DX: K50.111 Crohn's disease of large intestine with rectal bleeding (principal); K61.2 Anorectal abscess; F17.210 Nicotine dependence, cigarettes, uncomplicated; Z79.899 Other long term (current) drug therapy
CPT/HCPCS: 74177; 80048; 80053; 82248; 82728; 83540; 83550; 83605; 83690; 83735; 83993; 84703; 85025; 85027; 85652; 86140; 86480; 86704; 86706; 87045; 87046; 87324; 87340; 87427; 87449; 88305; 88342; 96365; 96375; 99285; J1745; J2916; Q9967